=== PATIENT | female | born 1955 | race Caucasian/White ===

== ENCOUNTER → 2024-04-13 08:16 | Outpatient (REF) | payer OTHER, SELFPAY | LOC: RAD 08:16 | PROVIDERS: ATTENDING PHYSICIAN Family Medicine; FAMILY PHYSICIAN Nurse Practitioner Adult Health | DX: M81.0 Age-related osteoporosis without current pathological fracture (principal) | CPT/HCPCS: 77080 ==

== ENCOUNTER 2025-05-29 14:50 | Emergency (ER) | payer MEDICARE, SELFPAY ==
[2025-05-29 15:04] VITALS: BP 152/93
[2025-05-29 15:37] LABS: Urine Character Clear (Clear)
[2025-05-29 15:44] LABS: Urine Squamous Cell 0-2 /LPF (Few)
[2025-05-29 15:45] LABS: Urine White Cell 0-2 /HPF (0-5)
--- NOTE | 2025-05-29 17:29 | ED.MUSCINJ ---
HPI-Injury
General
Chief Complaint: Musculo-Skeletal Complaint
Source: patient
Exam Limitations: none
Time Seen by Provider: 05/29/25 17:01
Nursing documentation reviewed up to this point in time: agreed with
History of Present Illness-Injury
Is this injury a work related problem?: No
Is pt an associate of [facility]?: No
Initial Injury comments:
Patient is emergency department with complaint of left lateral chest wall pain. States she believes that she injured area approxi-1 week ago while getting [employer] supplies out of closet. She notes a fading bruise to site. Pain is worse with
movement. She gets some relief with Advil. She is brought to emergency department by spouse for evaluation.
Past History
Past History
ED Past Medical History: Other (Sleep apnea)
ED Past Surgical History: None
Social History
Tobacco: Non-smoker
Alcohol: Occasional
Drug: None
Personal: Partner
Living: with family
Employment: Employed
Family History
Family History: CAD
Review of Systems
Review of Systems
Allergies reviewed?: Yes
All Other Systems: ROS reviewed and negative except as documented in HPI and ROS
Constitutional: Reports no symptoms
EENT: Reports no symptoms
Respiratory: Reports no symptoms
Cardiac: Reports no symptoms
ABD/GI: Reports no symptoms
: Reports no symptoms
Musculoskeletal: Reports joint pain (Pain to left lateral chest wall)
Skin: Reports no symptoms
Neurological: Reports no symptoms
Endocrine: Reports no symptoms
Hematologic/Lymphatic: Reports no symptoms
Psychiatric: Reports no symptoms
Musculoskeletal Injury Exam
Musculoskeletal Injury Exam
Left Lateral Chest:
Pain with Movement?: Moderate
Tender to palpation?: Moderate
Soft tissue swelling?: None
External deformity and angulation?: None
Joint effusion?: None
Contusion?: Moderate
Hematoma-local bleeding into tissue?: Mild
Strain- Sprain- Tear (Connective tissue injury)?: Moderate
Crepitus with movement?: No
Joint instability?: No
Malalignment/deformity?: No
Range of motion: Full
Distal skin color and temperature: normal-warm & good color
Capillary Refill: normal
Normal distal neurovascular exam?: Yes
Phy Exam
General Physical Exam
General Presentation: well appearing and no apparent distress
General age: appears stated age
General Skin: warm and dry
General Habitus: normal
General Mental: alert
Cardiovascular Exam
Cardiovascular Exam: regular rate/rhythm and no edema
Pulmonary Exam
Pulmonary Exam: lungs clear and no respiratory distress
Chest Wall: Left lateral: tenderness
Gastrointestinal Exam
Gastrointestinal Exam: normal bowel sounds, non tender, soft, no organomegaly, no pulsatile mass and non distended
Musculoskeletal Exam
Musculoskeletal Exam: other (Left lateral chest wall pain. Pain worse with palpation and movement.)
Skin Exam
Skin Exam: normal color, warm/dry, no rash and other (Small old appearing bruise noted to left lateral chest wall)
Psychiatric Exam
Psychiatric Exam: normal mood/affect
Injury Course
Orders/Labs/Results
Orders:
Orders
05/29/25 15:28
Urinalysis Reflex To Culture Urgent
Date Specimen was Collected: 05/29/25
Time Specimen was Collected: 15:09
Urine Microscopic Reflex Cult Urgent
Urine Culture Urgent
GREGORY Source: U
Specimen Description:
Date Specimen was Collected: 05/29/25
Time Specimen was Collected: 15:09
05/29/25 17:28
Ribs, Left 3 View W/PA Chest CR [CR Ribs-left 3 Vw W/pa Chest] Urgent
Comment:
Reason For Exam: pain
Abnormal Lab Results
05/29/25
15:28
Ur Occult Blood Reflex 1+ A
(Negative)
Urine RBC 3-6 A /HPF
(0-2)
Urine Bacteria (Reflex) Many A
(Negative)
*Radiology
Radiology exam reviewed: radiology read reviewed
*Pulse Oximetry
SaO2: 97
Oxygen Mode of Delivery: Room air
Patient hypoxic: no
*Critical Care Note
Total Time (30-74mins, 75-104mins- exclusive of procedures): Not Applicable
Update Note
Update Note:
Patient to the emergency department for evaluation of left lateral chest wall pain. She believes that she hit this slight while attempting to remove [employer] related boxes from a closet. She has an old fading bruise to the site of discomfort.
Pain is worse with movement. Able to reproduce pain rib series completed. There is no evidence of fracture on x-ray. She will be discharged home tonight. Instructed to use ice and anti-inflammatories for comfort measures. She will follow-up
with her family doctor. She was given instructions on signs and symptoms to return to the emergency department and she is agreeable to this plan.
ED Attending Note
-
Portions of this chart may have been created with voice recognition software.� Occasional wrong word or��sound alike� substitutions may have occurred due to the inherent limitations of voice recognition software.
Discharge Plan
Departure
Patient Disposition: Home (Routine Discharge)
Date of Disposition: 05/29/25
Time of Disposition: 18:41
Patient with high blood pressure during this ER visit?: No
Condition: Good
Covid-19: Not Applicable
Discharge Problem:
Chest wall contusion
Instructions: Contusion (DC), Ibuprofen, Using Cold for Pain
Prescriptions:
No Action
No Current Medications
0
Referrals:
UNKNOWN - PT NOT,INTERVIEWE [Family Provider]
Activity Restrictions/Additional Instructions:
Follow-up with your family doctor.
Interventions
Interventions:
*Neglect/Abuse Screening Last Done: 05/29/25 15:04
*Nursing Disposition Last Done: 05/29/25 18:57
ED-Musculoskeletal Assessment Last Done: 05/29/25 18:22
Discharge Date and Time
Discharge Date/Time: 05/29/25 18:57
Print Language: RWANDAN
== END 2025-05-29 18:57 | disposition home or self-care (01) ==
LOC: EMR 14:50
PROVIDERS: Physician Assistant Medical; EMERGENCY PHYSICIAN Emergency Medicine
DX: S20.212A Contusion of left front wall of thorax, initial encounter (principal); X58.XXXA Exposure to other specified factors, initial encounter; G47.30 Sleep apnea, unspecified
CPT/HCPCS: 99284; 71101; 81003; 81015; 87086